=== PATIENT | male | born 1960 | race Caucasian/White ===

== ENCOUNTER → 2018-03-15 | Outpatient (CLI) | payer OTHER ==
--- NOTE | 2018-03-16 12:04 | PCVCIMAG ---
APPROVED REPORT Study performed: 03/15/2018 09:27:22 Exam: Stress Echocardiogram Indication: CAD Patient Location: Echo lab Stress Nurse: Jesica Altman RN Status: routine Ht: 5 ft 8 in HR: 83 bpm BP: 120/80 mmHg Rhythm: NSR Medical History Exercise History: Physically active Procedure The patient underwent an Exercise Stress Test using the Ottoniel Protocol. Blood pressure, heart rate, and EKG were monitored. An Echocardiogram was performed by traffic survey technician in four stages in quad fashion. At peak stress, four selected images were obtained and placed side by side with resting images for comparison. Stress Test Details Stress Test: Exercise stress testing was performed using a Ottoniel protocol. HR Resting HR: 83 bpmMax Heart Rate (APMHR): 163 bpm Max HR Achieved: 193 bpmTarget HR (85% APMHR): 138 bpm % of APMHR: 118 HR response to stress: Normal HR response to stress BP Resting BP: 120/80 mmHg Max BP: 168/88 mmHg ECG Resting ECG: Sinus Rhythm Stress ECG: Sinus Rhythm Recovery ECG: Sinus Rhythm Clinical Reason for Termination: Maximal effort Exercise duration: 9 min 30 sec Highest Stage Achieved: Stage 4: 4.2 mph at 16% grade. Exercise capacity: 11.70 METs Overall Exercise Capacity for Age: Normal Stress ECG Conclusion 1. SUBJECTIVELY NEGATIVE FOR ISCHEMIA 2. ELECTROCARDIOGRAPHICALLY NEGATIVE FOR ISCHEMIA 3. SATISFACTORY FUNCTIONAL CAPACITY Pre-Stress Echo The resting Echocardiogram showed normal left ventricular contractility with an estimated Ejection Fraction of about 55-60%. Normal wall motion in all segments on baseline images. Post-Stress Echo The stress Echocardiogram showed normal left ventricular contractility with an estimated Ejection Fraction of about 60-65%. Normal augmentation of wall motion in all segments on post stress images. Clinical No clinical or ECG evidence for ischemia. Conclusion Clinical Response: Non-ischemic Exercise Capacity: Average Stress ECG Response: Non-ischemic Stress Echo Images: Non-ischemic 1. LOW RISK STUDY Other Information Study Quality: Adequate <Conclusion> 1. LOW RISK STUDY
== END | disposition home or self-care (01) ==
LOC: PCVCIMAG 11:55
PROVIDERS: ATTEND Internal Medicine
DX: I25.10 Atherosclerotic heart disease of native coronary artery without angina pectoris (principal); I10 Essential (primary) hypertension; E78.5 Hyperlipidemia, unspecified
CPT/HCPCS: 93325; 93351

== ENCOUNTER → 2018-10-21 | Outpatient (CLI) | payer OTHER ==
--- NOTE | 2018-10-22 10:10 | PCVCIMAG ---
APPROVED REPORT Study performed: 10/21/2018 15:03:18 EXAM: Comprehensive 2D, Doppler, and color-flow Echocardiogram Patient Location: Echo lab Status: routine BSA: 2.07 HR: 81 bpmBP: 122/96 mmHg Rhythm: NSR Other Information Study Quality: Adequate Risk Factors: Cardiac Risk Factors: Hyperlipidemia Indications CAD 2D Dimensions IVSd: 12.15 (7-11mm)LVOT Diam: 21.06 (18-24mm) LVDd: 41.98 mm PWd: 10.02 (7-11mm)Ascending Ao: 33.90 (22-36mm) LVDs: 32.75 (25-40mm) Left Atrium: 30.37 (27-40mm) Aortic Root: 32.95 mm LV Single Plane 4CH: 56.86 % LV Single Plane 2CH: 56.27 % Volumes Left Atrial Volume (Systole) Single Plane 4CH: 22.03 mLSingle Plane 2CH: 30.93 mL LA ESV Index: 13.00 mL/m2 Aortic Valve AoV Peak Wilfrid.: 1.23 m/s AO Peak Gr.: 6.04 mmHgLVOT Max P.96 mmHg LVOT Max V: 1.00 m/s LEATHA Vmax: 2.82 cm2 Mitral Valve E/A Ratio: 0.8 MV Decel. Time: 276.96 ms MV E Max Wilfrid.: 0.57 m/s MV A Wilfrid.: 0.74 m/s TDI E/Lateral E': 5.18E/Medial E': 11.40 Medial E' Wilfrid.: 0.05 m/s Lateral E' Wilfrid.: 0.11 m/s Pulmonary Valve PV Peak Gr.: 2.27 mmHg Left Ventricle The left ventricle is normal size. There is normal LV segmental wall motion. There is normal left ventricular wall thickness. Left ventricular systolic function is normal. The left ventricular ejection fraction is within the normal range. LVEF is 55-60%. The left ventricular diastolic function is normal. Right Ventricle The right ventricle is normal size. The right ventricular systolic function is normal. Atria The left atrium size is normal. The right atrium size is normal. Aortic Valve The aortic valve is normal in structure. No aortic regurgitation is present. There is no aortic valvular stenosis. Mitral Valve The mitral valve is normal in structure. There is no mitral valve regurgitation noted. No evidence of mitral valve stenosis. Tricuspid Valve The tricuspid valve is normal in structure. There is no tricuspid valve regurgitation noted. Pulmonic Valve The pulmonary valve is normal in structure. Trace pulmonic regurgitation. Great Vessels The aortic root is normal in size. IVC is normal in size and collapses >50% with inspiration. Pericardium There is no pericardial effusion. <Conclusion> The left ventricle is normal size. LVEF is 55-60%. The aortic valve is normal in structure. The mitral valve is normal in structure. The tricuspid valve is normal in structure. The pulmonary valve is normal in structure. Trace pulmonic regurgitation. There is no pericardial effusion.
== END | disposition home or self-care (01) ==
LOC: PCVCIMAG 14:18
PROVIDERS: ATTEND Internal Medicine
DX: I25.10 Atherosclerotic heart disease of native coronary artery without angina pectoris (principal); I47.1 Supraventricular tachycardia; I10 Essential (primary) hypertension; E78.5 Hyperlipidemia, unspecified; R00.2 Palpitations
CPT/HCPCS: 93306